=== PATIENT | female | born 1960 | race Caucasian/White ===

== ENCOUNTER 2024-09-25 00:51 | Day surgery (SDC) | payer OTHER, SELFPAY ==
[2024-09-22 15:59] VITALS: BMI 36.3
--- NOTE | 2024-09-22 16:25 | PC.NURSE ---
Report to the Outpatient Waiting Room, entrance under the green pavilion located off [facility], at time _0745__ on date _09/25/24_. Planned Procedure Time: _0945_.? Time changes happen often and if your time is changed the preop area will call you the afternoon before. - You and your visitor will be asked to self-screen and do not enter if you have any COVID symptoms. Please call surgeon if you need to reschedule. - A mask is optional within the hospital at this time. Patients may have clear liquids (water, carbonated beverages, clear teas, apple juice) until 3 hours prior to surgery with a maximum of 20 ounces. - No food from midnight until time of surgery and no smoking, or chewing tobacco (or any form of nicotine). No chewing gum, candy or mints. - Infants may have breast milk until 4 hours before surgery, infant formula 6 hours prior to surgery. - Children will be allowed to drink immediately following surgery.? If applicable, please bring a bottle or sippy cup to assist with drinking. Juice, water, soda, and popsicles are readily available.? For infants on formula, please bring formula the day of surgery.? Pacifiers are allowed. Take only the following medications with a SIP of water on the morning of surgery: ____BUPROPION, DULOXETINE,PROPANOLOL,LAMOTRIGINE DO NOT STOP ANY OF YOUR OTHER PRESCRIPTION MEDICATIONS PRIOR TO SURGERY EXCEPT THE FOLLOWING, PT STATES DR. LARA IS OK WITH HER CONTINUING HER BRILENNTA Hold all vitamins and supplements for 3 days per anesthesiologist. Medications to discontinue per physician ASPIRIN Date to take last dose___PT TOOK 09/22/24 Please no make-up, nail austrian, hairspray, perfume, deodorant, or body powder the day of surgery.? No jewelry (including any body piercings) or valuables the day of surgery, leave them at home.? Please take a shower or bath the night before, or the morning of, surgery with an antibacterial soap.? Wear comfortable, loose fitting clothing.? Children are encouraged to wear pajamas. - Jewelry must be removed prior to entering the operating room.? Rings and piercings that are not removed may be cut off. - The hospital will not accept responsibility for valuables.? - Please leave all valuables, including medications, at home the day of surgery. If you are going home after surgery, a licensed [employer] company driver must drive you home.? - NO public transportation without another adult if you receive anesthesia. - We recommend that an adult stay with you for 24 hours following discharge. - We also recommend that you do not drive, make important decision, drink alcoholic beverages, or take any drugs that were not prescribed by your health care provider for at least 24 hours after your discharge time. For Pediatric surgeries, we recommend two adults accompany the child home. Follow any additional instructions given to you from your surgeon. Telephone instructions given to PATIENT_and asked if any additional questions and then verbalized understanding. Patient advised to call surgeon office or pre surgery nurse liaison [phone] if any additional questions.
--- NOTE | 2024-09-22 18:35 | P.HP_ITS ---
H&P: HPI History of Present Illness Date/Time: 09/22/24 18:35 Chief Complaint: bladder leskon Narrative: bladder lesion on cysto Review of Systems Review of Systems: All systems reviewed & are unremarkable except as noted in HPI and below [facility] Social History Social History Smoking packs per day: 0.5 Smoking cigarettes per day: 10.0 Years smoked: 20 Smoking pack-years: 10.00 Smoking status: Former smoker Additional smoking assessment comments: QUIT 2004 Alcohol intake: current Drinks per week: 6 Living arrangements: with family Meds Home Medications and Allergies Home Medications ?Medication ?Instructions ?Recorded ?Confirmed ?Type VoTerra VMZ See Rx Instructions .Route .COMPLEX 09/22/24 09/22/24 History VoTerra XEO See Rx Instructions .Route .COMPLEX 09/22/24 09/22/24 History aspirin 81 mg capsule 81 mg PO DAILY 09/22/24 09/22/24 History bupropion HCl 150 mg 24 hr tablet, 150 mg PO BID 09/22/24 09/22/24 History extended release calcium 600 mg (as 1 tablet PO BID 09/22/24 09/22/24 History carbonate)-vitamin D3 5 mcg (200 unit) tablet (Calcium 600 + D(3)) cetirizine 5 mg-pseudoephedrine ER 1 tablet PO DAILY 09/22/24 09/22/24 History 120 mg tablet,extended release,12hr dextromethorphan-guaifenesin 30 1 tablet PO DAILY PRN congestion 09/22/24 09/22/24 History mg-600 mg tablet extended [id number] hr (Mucus DM) diclofenac sodium 25 mg 25 mg PO BID 09/22/24 09/22/24 History tablet,delayed release duloxetine 60 mg capsule,delayed 60 mg PO BID 09/22/24 09/22/24 History release estradiol 0.01% (0.1 mg/gram) 1 appful vaginal .QOD 09/22/24 09/22/24 History vaginal cream ezetimibe 10 mg tablet 10 mg PO HS 09/22/24 09/22/24 History glucosamine 750 vp-hocpyqfmw-ifz 1 tablet PO BID 09/22/24 09/22/24 History no.7 644 mg-vit F-cknzez-iclos tablet lactobacillus combination no.4 3 3,000 mmu cells PO DAILY 09/22/24 09/22/24 History billion cell capsule (Probiotic) lamotrigine 25 mg tablet 25 mg PO BID 09/22/24 09/22/24 History lisinopril 2.5 mg tablet 2.5 mg PO DAILY 09/22/24 09/22/24 History montelukast 10 mg tablet 10 mg PO HS 09/22/24 09/22/24 History nitroglycerin 0.4 mg sublingual 0.4 mg sublingual PRN CHEST PAIN 09/22/24 09/22/24 History tablet nystatin 100,000 unit/gram topical 1 applic topical PRN BREAKOUT 09/22/24 09/22/24 History cream nystatin 100,000 unit/gram topical 1 applic topical QID 09/22/24 09/22/24 History powder pantoprazole 40 mg tablet,delayed 40 mg PO Q12H 09/22/24 09/22/24 History release propranolol 160 mg capsule,24 160 mg PO Q24H 09/22/24 09/22/24 History hr,extended release rosuvastatin 40 mg tablet 40 mg PO DAILY 09/22/24 09/22/24 History semaglutide 2 mg/dose (8 mg/3 mL) 0.25 mg subcut WEEKLY 09/22/24 09/22/24 History subcutaneous pen injector (Ozempic) sucralfate 1 gram tablet 1 g PO BID 09/22/24 09/22/24 History ticagrelor 90 mg tablet (Brilinta) 90 mg PO Q12H 09/22/24 09/22/24 History tramadol 50 mg tablet 50 mg PO Q12H 09/22/24 09/22/24 History Allergies Allergy/AdvReac Type Severity Reaction Status Date / Time metronidazole (From Flagyl) Allergy Severe HIVES, Verified 09/22/24 15:31 FEVER, NAUSEA adhesive Allergy Intermediate Rash Verified 09/22/24 15:31 animal dander Allergy Intermediate ITCHING/SNE Verified 09/22/24 16:40 EZING betaxolol Allergy Intermediate Hives Verified 09/22/24 15:31 cefazolin Allergy Intermediate Unknown Verified 09/22/24 16:40 cefprozil Allergy Intermediate Hives Verified 09/22/24 15:31 clonazepam Allergy Intermediate Hives Verified 09/22/24 15:31 house dust Allergy Intermediate ITCHING/SNE Verified 09/22/24 16:40 EZING isopropyl alcohol Allergy Intermediate REDDNESS Verified 09/22/24 15:31 Latex, Natural Rubber Allergy Intermediate REDDNESS Verified 09/22/24 15:31 mold Allergy Intermediate ITCHING, Verified 09/22/24 16:40 SNEEZING nitrofurantoin (From Allergy Intermediate VISION Verified 09/22/24 15:31 Macrobid) CHANGES Sulfa (Sulfonamide Allergy Intermediate HIVES, Verified 09/22/24 15:31 Antibiotics) REDDNESS sulfamethoxazole (From Allergy Intermediate Hives Verified 09/22/24 15:31 Bactrim) trimethoprim (From Bactrim) Allergy Intermediate Hives Verified 09/22/24 15:31 poison sarthak extract Allergy Rash Verified 09/22/24 16:40 Exam Narrative: NAD Assessment and Plan Assessment and plan (1) Lesion of bladder: Code(s): N32.9 - Bladder disorder, unspecified Status: Acute Assessment and Plan: cystosocpy/bladder biopsy
--- OUTSIDE RECORDS SUMMARY | 2024-09-25 00:54 | XMS_ITS | Patient Health Record ---
Author Organization 1 OF Yulia lopez [facility] Address [address] [place] [address] Care Team Providers Care Group Fitness Assistant Department Head Name Role Phone Aleena Nielson Primary Care Provider Unavail able Maximo Raza Unavailable [phone] Allergies Allergen (clinical drug ingredient) Drug/Non Drug Allergy documented on EMR Reaction Allergy Type Onset Date Status Information temporarily unavailable Betaxolol HCl Unknown Drug Allergy Active Information temporarily unavailable Cefzil Unknown Drug Allergy Active Information temporarily unavailable Clonazepam Unknown Drug Allergy Active Information temporarily unavailable Flagyl Unknown Drug Allergy Active Information temporarily unavailable Sulfamethoxazole Unknown Drug Allergy Active Reason For Referral No Information Medications Medication SIG (Take, Route, Frequency, Duration) Notes Start Date End Date Status Diclofenac 35 MG 1 capsule Orally Thr ee times a day PRN Active Omeprazole Active traMADol HCl 50 MG 1 tablet as needed Orally every 6 hrs Active Montelukast Sodium A ctive Rosuvastatin Calcium Active Sucralfate Active Nystatin Active Propranolol HCl 160 MG as directed Orally Active Nitroglycerin Active Lisinopril Active Jardiance Not-Taking Brilinta Active Spironolactone Not-T aking Zetia Active Iron (Ferrous Sulfate) Active Estradiol Active Vitamin D (Cholecalciferol) Active ZyrTEC Active Ozempic Active buPROPion HCl Active Glucosamine Chond Complex/MSM - as directed Orally Active lamoTRIgine 25 MG Oral; Duration: 30 Days Active Aspirin 81 Active Probiotic Active DULoxetine HCl 60 MG 1 capsule Orally On ce a day Active Propranolol HCl ER 120 MG 1 capsule Oral ly Once a day Not-Taking Problems Problem Type SNOMED Code ICD Code Onset Dates Problem Status W/U Status Risk Notes Problem Information temporarily unavailable Type 2 diabetes mellitus with other diabetic neurological complication (E11.49) Active confirmed Problem Information temporarily unavailable Type 2 diabetes mellitus with other diabetic neurological complication (E11.49) Active confirmed Problem Information temporarily unavailable Type 2 diabetes mellitus without complication (E11.9) Active confirmed Problem Information temporarily unavailable Ulcer of left foot, limited to breakdown of skin (L97.521) Active confirmed Problem Information temporarily unavailable Raynaud's disease without gangrene (I73.00) Active confirmed Problem Information temporarily unavailable 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) Active confirmed Vital Signs Height 65 in 07/29/2024 Weight 207 lbs 07/29/2024 BMI 34.44 kg/m2 07/29/2024 Encounters Encounter Location Date Provider Diagnosis 3 COL Jamison Raza DPM [facility] [address] [address] 11/20/2023 Maximo Raza Type 2 diabetes mellitus with other diabetic neurological complication E11.49 ; Callus of foot L84 ; Onychogryphosis L60.2 and Onychodystrophy L60.3 3 COL Jamison Raza DPM [facility] [address] [address] 01/29/2024 Maximo Raza Type 2 diabetes mellitus with other diabetic neurological complication E11.49 ; Onychogryphosis L60.2 and Onychodystrophy L60.3 3 COL Jamison Raza DPM [facility] [address] [address] 05/13/2024 Maximo Raza Type 2 diabetes mellitus with other diabetic neurological complication E11.49 ; Onychogryphosis L60.2 ; Onychodystrophy L60.3 ; Raynaud's disease without gangrene I73.00 ; Blue toe syndrome of both lower extremities I75.023 ; Toe pain, left M79.675 and Toe pain, right M79.674 3 COL Jamison Raza DPM [facility] [address] [address] 07/29/2024 Maximo Raza Type 2 diabetes mellitus with other diabetic neurological complication E11.49 ; Onychogryphosis L60.2 ; Onychodystrophy L60.3 ; Raynaud's disease without gangrene I73.00 ; Blue toe syndrome of both lower extremities I75.023 and Callus of foot L84 1 OF Yulia Garrett Ry [facility] [address] [place] [address] 05/11/2024 Maximo Raza 1 OF Yulia Raza [facility] [address] [place] [address] 05/15/2024 Maximo Raza Assessments Encounter Date Diagnosis (ICD Code) Assessment Notes Treatment Notes Treatment Clinical Notes Section Notes 11/20/2023 Type 2 diabetes mellitus with other diabetic neurological complication (ICD-10 - E11.49) Considering the associated comorbidities and physical exam findings today, this patient is at substantial risk of developing serious foot complications in the absence of regular and professional palliative foot care 11/20/2023 Callus of foot (ICD-10 - L84) 01/29/2024 Type 2 diabetes mellitus with other diabetic neurological complication (ICD-10 - E11.49) Considering the associated comorbidities and physical exam findings today, this patient is at substantial risk of developing serious foot complications in the absence of regular and professional palliative foot care 01/29/2024 Onychogryphosis (ICD-10 - L60.2) 05/13/2024 Type 2 diabetes mellitus with other diabetic neurological complication (ICD-10 - E11.49) Considering the associated comorbidities and physical exam findings today, this patient is at substantial risk of developing serious foot complications in the absence of regular and professional palliative foot care 05/13/2024 Onychogryphosis (ICD-10 - L60.2) 07/29/2024 Type 2 diabetes mellitus with other diabetic neurological complication (ICD-10 - E11.49) Considering the associated comorbidities and physical exam findings today, this patient is at substantial risk of developing serious foot complications in the absence of regular and professional palliative foot care 07/29/2024 Onychogryphosis (ICD-10 - L60.2) 07/29/2024 Onychodystrophy (ICD-10 - L60.3) 05/13/2024 Onychodystrophy (ICD-10 - L60.3) 01/29/2024 Onychodystrophy (ICD-10 - L60.3) 11/20/2023 Onychogryphosis (ICD-10 - L60.2) 11/20/2023 Onychodystrophy (ICD-10 - L60.3) 05/13/2024 Raynaud's disease without gangrene (ICD-10 - I73.00) Discussed nature and etiology of Raynauds as well as treatment options including avoiding exposure to cold air, wearing warm shoes / socks, use of space heater and/or turning up heat in house. Patient also advised the condition could be due to microemboli from the recent cardiac stent or possibly both Raynauds and microemboli. Patient advised to keep her appointment with vascular and monitor the feet closely and contact our office [facility] with any concerns. Otherwise f/u prn for this issue. 07/29/2024 Raynaud's disease without gangrene (ICD-10 - I73.00) 07/29/2024 Blue toe syndrome of both lower extremities (ICD-10 - I75.023) 05/13/2024 Blue toe syndrome of both lower extremities (ICD-10 - I75.023) 05/13/2024 Toe pain, left (ICD-10 - M79.675) 05/13/2024 Toe pain, right (ICD-10 - M79.674) 07/29/2024 Callus of foot (ICD-10 - L84) Plan Of Treatment Next Appt Details Provider Name:Maximo Raza, 10/07/2024 01:30:00 PM, [address] [place] [address], [address], [place], [address], Insurance Providers Payer Name Payer Address Payer Phone Subscriber Number Group Number Insured Name Patient Relationship to Insured Coverage Start Date Coverage End Date [employer] Medicare Complete [address] [address] [place] [address] [phone] [id number] Rosita Hernandez Self - patient is the insured Medical (General) History Medical History History ICD Code Diabetes Arthritis Hypertension Chronic Back Pain High Cholesterol Acid Reflux Depression Anxiety PTSD Panic Attacks Fibromyalgia sleep apnea Heart attack 04/07/2024 raynauds syndrome Surgical History Surgery Date(Month/Year) Hysterectomy Breast Bx D and C Tonsillectomy R shoulder R hand cardiac cath heart stent
--- OUTSIDE RECORDS SUMMARY | 2024-09-25 00:54 | XMS_ITS ---
Author Organization 1 OF Yulia lopez DPM [facility] Address [address] [facility] [address] [place] [address] Care Team Providers Care Seaman Officer Name Role Phone Aleena Nielson Primary Care Provider Unavail Maximo Perez [phone] REASON FOR VISIT DFC (Diabetic foot care) Encounters Encounter Location Date Provider Diagnosis 3 COL Jamison Raza DPM [address] [address] 07/22/2024 Maximo Raza Plan Of Treatment Next Appt Details Provider Name:Maximo Raza, 10/07/2024 01:30:00 PM, [address] [place] [address], [phone], Progress Notes * Antionette HERNANDEZhDOB:1960 (64 yo F)Acc No.[id number]:07/22/2024 Progress Note Patient: Rosita NIEVES Provider: Yulia Raza DPM :1960 A ge:64 Y S ex:Female Date:07/22/2024 Address:[address] [place], [id number] Pcp:ANATOLY Sotomayor Subjective: * Chief Complaints: * 1 . DFC (Diabetic foot care). * Medical History: Objective: * Vitals: Assessment: Plan: * Treatment: * Images: * Electronic signature of Eliazar Raza DPM on 09/25/2024 at 12:54 AM CDT Sign off status: Pending * Provider: Yulia Raza DPM Date: 0 07/22/2024 Generated for Barber diallo/Say/Benito on: 0 09/25/2024 12:54 AM CDT
--- NOTE | 2024-09-25 07:18 | WPDHPUPDATE1 ---
History and Physical Update Update Date/Time: 09/25/24 07:18 History and Physical has been reviewed, including an updated exam of the patient. There are NO changes in the patient's condition. Risks, benefits, and alternatives have been discussed and questions answered. Patient agrees to proceed with procedure.
[2024-09-25 07:58] LABS: Hematocrit 45.0 % (37.0-47.0); Hemoglobin 14.2 g/dL (12.0-15.0)
[2024-09-25 07:59] VITALS: BP 140/98; PULSE 74; TEMP 37.4; O2SAT 100; BMI 37.7
[2024-09-25] MEDS: LACTATED RINGERS 1,000 ML 30 ML IV CONT (08:02)
--- NOTE | 2024-09-25 08:06 | P.PNAN_ITS ---
Anes - Initial Pre Proc Eval Procedure: Operation Date: 09/25/24 09:00 Proposed Procedures p Cystoscopy, Bladder Biopsy - Eliazar Denny MD Date/Time: 09/25/24 08:06 Surgeon: Eliazar Denny MD Pre Op Diagnosis: hyper vascular lesion urinary bladder Patient Data Age: 64 Gender: F Height: 1.63 m Weight: 99.65 kg Last Vital Signs Temp 37.4 C 09/25/24 07:59 Pulse 74 09/25/24 07:59 BP 140/98 H 09/25/24 07:59 Pulse Ox 100 09/25/24 07:59 O2 Del Method Room Air 09/25/24 07:59 Allergies Allergy/AdvReac Type Severity Reaction Status Date / Time metronidazole (From Flagyl) Allergy Severe HIVES, Verified 09/25/24 07:58 FEVER, NAUSEA adhesive Allergy Intermediate Rash Verified 09/25/24 07:58 animal dander Allergy Intermediate ITCHING/SNE Verified 09/25/24 07:58 EZING betaxolol Allergy Intermediate Hives Verified 09/25/24 07:58 cefazolin Allergy Intermediate Unknown Verified 09/25/24 07:58 cefprozil Allergy Intermediate Hives Verified 09/25/24 07:58 clonazepam Allergy Intermediate Hives Verified 09/25/24 07:58 house dust Allergy Intermediate ITCHING/SNE Verified 09/25/24 07:58 EZING isopropyl alcohol Allergy Intermediate REDDNESS Verified 09/25/24 07:58 Latex, Natural Rubber Allergy Intermediate REDDNESS Verified 09/25/24 07:58 mold Allergy Intermediate ITCHING, Verified 09/22/24 16:40 SNEEZING nitrofurantoin (From Allergy Intermediate VISION Verified 09/22/24 15:31 Macrobid) CHANGES Sulfa (Sulfonamide Allergy Intermediate HIVES, Verified 09/22/24 15:31 Antibiotics) REDDNESS sulfamethoxazole (From Allergy Intermediate Hives Verified 09/22/24 15:31 Bactrim) trimethoprim (From Bactrim) Allergy Intermediate Hives Verified 09/22/24 15:31 poison sarthak extract Allergy Rash Verified 09/22/24 16:40 Home Medications ?Medication ?Instructions ?Recorded ?Confirmed ?Type VoTerra VMZ See Rx Instructions .Route .COMPLEX 09/22/24 09/22/24 History VoTerra XEO See Rx Instructions .Route .COMPLEX 09/22/24 09/22/24 History aspirin 81 mg capsule 81 mg PO DAILY 09/22/24 09/22/24 History bupropion HCl 150 mg 24 hr tablet, 150 mg PO BID 09/22/24 09/22/24 History extended release calcium 600 mg (as 1 tablet PO BID 09/22/24 09/22/24 History carbonate)-vitamin D3 5 mcg (200 unit) tablet (Calcium 600 + D(3)) cetirizine 5 mg-pseudoephedrine ER 1 tablet PO DAILY 09/22/24 09/22/24 History 120 mg tablet,extended release,12hr dextromethorphan-guaifenesin 30 1 tablet PO DAILY PRN congestion 09/22/24 09/22/24 History mg-600 mg tablet extended kfakrzo31 hr (Mucus DM) diclofenac sodium 25 mg 25 mg PO BID 09/22/24 09/22/24 History tablet,delayed release duloxetine 60 mg capsule,delayed 60 mg PO BID 09/22/24 09/22/24 History release estradiol 0.01% (0.1 mg/gram) 1 appful vaginal .QOD 09/22/24 09/22/24 History vaginal cream ezetimibe 10 mg tablet 10 mg PO HS 09/22/24 09/22/24 History glucosamine 750 xb-zbbtpcnss-lly 1 tablet PO BID 09/22/24 09/22/24 History no.7 644 mg-vit U-ihwbxq-xfwhb tablet lactobacillus combination no.4 3 3,000 mmu cells PO DAILY 09/22/24 09/22/24 History billion cell capsule (Probiotic) lamotrigine 25 mg tablet 25 mg PO BID 09/22/24 09/22/24 History lisinopril 2.5 mg tablet 2.5 mg PO DAILY 09/22/24 09/25/24 History montelukast 10 mg tablet 10 mg PO HS 09/22/24 09/22/24 History nitroglycerin 0.4 mg sublingual 0.4 mg sublingual PRN CHEST PAIN 09/22/24 09/22/24 History tablet nystatin 100,000 unit/gram topical 1 applic topical PRN BREAKOUT 09/22/24 09/22/24 History cream nystatin 100,000 unit/gram topical 1 applic topical QID 09/22/24 09/22/24 History powder pantoprazole 40 mg tablet,delayed 40 mg PO Q12H 09/22/24 09/22/24 History release propranolol 160 mg capsule,24 160 mg PO Q24H 09/22/24 09/25/24 History hr,extended release rosuvastatin 40 mg tablet 40 mg PO DAILY 09/22/24 09/22/24 History semaglutide 2 mg/dose (8 mg/3 mL) 0.25 mg subcut WEEKLY 09/22/24 09/22/24 History subcutaneous pen injector (Ozempic) sucralfate 1 gram tablet 1 g PO BID 09/22/24 09/22/24 History ticagrelor 90 mg tablet (Brilinta) 90 mg PO Q12H 09/22/24 09/22/24 History tramadol 50 mg tablet 50 mg PO Q12H 09/22/24 09/22/24 History Laboratory Tests 09/25/24 09/25/24 07:43 07:54 Hgb 14.2 g/dL (12.0-15.0) Hct 45.0 % (37.0-47.0) POC Capillary Glucose 134 H mg/dl (65-105) Patient hx anesthesia problems: none Family hx anesthesia problems: none Results Review: All pre-operative results and documents have been reviewed as part of the pre- operative evaluation. [facility] Past Medical History Medical History (Updated 09/25/24 @ 08:07 by Gerry Mukherjee MD) PTSD (post-traumatic stress disorder) Esophageal stricture CAD (coronary artery disease) Obesity Surgical History Surgical History (Updated 09/25/24 @ 08:07 by Gerry Mukherjee MD) H/O esophagogastroduodenoscopy History of coronary artery stent placement Social History Social History Smoking packs per day: 0.5 Smoking cigarettes per day: 10.0 Years smoked: 20 Smoking pack-years: 10.00 Smoking status: Former smoker Additional smoking assessment comments: QUIT 2004 Alcohol intake: current Drinks per week: 6 Living arrangements: with family Anes - Eval Final PreProcedure Day of Procedure 09/25/24 08:06 Patient weight: obese Heart: regular rate and rhythm Lungs: clear to auscultation Airway: Mallampati scale class II Neurological: alert and oriented Last oral intake: >/= 8 hours ASA classification: III Emergent: no Anesthetic plan: proceed Anesthesia type and monitoring: general GIVS and standard monitoring Results Review: All pre-operative results and documents have been reviewed as part of the pre- operative evaluation. Informed Consent: The patient's anesthetic plan and its attendant risks and benefits were discusse d with the patient/family/POA. Questions were solicited and answers provided to the satisfaction of the patient/family/POA.
[2024-09-25] MEDS: levoFLOXacin 500 MG/D5W 100 ML 500 MG/100 ML BAG 100 MG IVPB (09:00)
--- NOTE | 2024-09-25 09:31 | S_PTH ---
PATIENT: Rosita Hernandez LOC: [facility]#:[id number] AGE/SX: 64/F ROOM: RE09/25/[address]: Eliazar Denny MD : 1960 BED: DIS: 09/25/2024 SPEC #: [id number] RECD: 09/25/24 10:28 STATUS: PATRICIA REQuin #: [id number] FLEX: 09/25/24 09:[address]: Eliazar Denny DEPT: [facility] Surgical RECD BY: Ana Miller Tissues: A - Bladder Biopsy Procedures: Hematoxylin and Eosin Stain Gross and Microscopic Level 4
[2024-09-25 09:35] VITALS: BP 108/65; PULSE 76; RESP 14; O2SAT 97
--- NOTE | 2024-09-25 09:46 | W.PM.PROC2 ---
Procedure Note - Detailed Date of Procedure 09/25/24 Pre-op Diagnosis hyper vascular lesion urinary bladder Post-op Diagnosis Same Procedure Performed Cystoscopy with bladder biopsy Surgeon Eliazar Denny MD Anesthesia MAC Indications Red area noted within the bladder on cystoscopy. Presents today for biopsy. Understands risks of bleeding, infection, damage to the urinary tract. Did not stop her blood thinner. I think she is at low risk for bleeding and we will proceed Findings A small area of redness on floor of bladder Description of Procedure She is correctly identified. Informed consent obtained. From the operating room. She was given monitored anesthesia care. She was placed in dorsal lithotomy position. She was prepped draped sterile fashion. Time-out performed. On cystoscopy she had mild trabeculations. Left ureteral orifice was evident. There was a small area of redness superior and medial to the left ureteral orifice. Right ureteral orifice cannot be relied be identified no bladder tumors or stones. I did a gentle biopsy of this reddened area. Then generously fulgurated the base of the biopsy. There was no bleeding under low insufflation pressures. She was awakened transferred to PACU stable condition Estimated Blood Loss 0 Drains No Packing No Pathology Yes (Bladder biopsy) Complications No immediate complications Condition Stable
[2024-09-25 10:00] VITALS: BP 131/81; PULSE 67; RESP 14; O2SAT 97
[2024-09-25 10:30] VITALS: BP 135/85; PULSE 72; RESP 14
[2024-09-25 11:00] VITALS: BP 144/81; PULSE 71; RESP 14
--- NOTE | 2024-09-25 11:17 | SUR.PHASEII ---
PATIENT DRESSED, WAITING FOR HER RIDE.
== END 2024-09-25 12:30 | disposition home or self-care (01) ==
PROVIDERS: Anesthesiology; Visit Provider Urology
PROC: 0TBB8ZX Excision of Bladder, Via Natural or Artificial Opening Endoscopic, Diagnostic (ICD-10-PCS; CPT 52204; principal; 2024-09-25 09:00)
DX: N30.20 Other chronic cystitis without hematuria (principal); Z87.891 Personal history of nicotine dependence; E66.9 Obesity, unspecified; Z68.37 Body mass index [BMI] 37.0-37.9, adult; Z79.899 Other long term (current) drug therapy
CPT/HCPCS: 52204; 36415; 82948; 85014; 85018; 88305; J1956; J2003; J2250; J2704; J3010; J7120